=== PATIENT | female | born 1970 | race Caucasian/White ===

== ENCOUNTER 2016-10-03 14:44 | Emergency (ER) | payer OTHER ==
[~2016-10-03] VITALS: Ht 167.6 cm; Wt 65.8 kg
--- NOTE | ~2016-10-03 | CR63 ---
[facility] A Service of [facility] RADIOLOGY TEXT RESULTS PATIENT: MIGUEL JOVEL LOCATION: [facility] : 72 UNIT #: [id number] AGE: [address]: Candy Yu APRN SEX: F ORDER DR: [id number] [facility] [address] [place], [place] [address] [id number] MR#: [id number] Acc #: [id number] NAME: MIGUEL JOVEL. : 1970 SEX: F STUDY DATE/TIME: 10/03/2016 16:20 UNIT: CFIN ROOM: STUDY DESCRIPTION: CR Chest 2 View Attending Physician: Candy Yu A.P.R.N. Referring Physician: Anjum Davis M.D. Ordering Physician: Mehdi De La Rosa M.D. Primary Care Physician[facility] This report is preliminary unless electronic signature is present EXAM Two views chest, 10/03/2016. HISTORY Short of air related to mold exposure, wound infection on buttocks, two days duration. Rheumatoid. TECHNIQUE AP radiograph of the chest is presented. COMPARISON 10/14/2011. FINDINGS Heart and mediastinum normal in size and contour. Lungs somewhat hyperinflated. Correlate with any known underlying chronic airway disease. There is no clear indication of acute infectious or inflammatory disease. There is no pleural effusion or pneumothorax. No suspicious nodule. Stable appearance of densely calcified granuloma, right lung base. There is no acute appearing bony abnormality. Mild levoscoliosis of the thoracic spine. Old healed right anterior 7th rib fracture. Dictated by... Rodney Wong M.D. THIS IS AN ELECTRONICALLY VERIFIED REPORT Rodney Wong M.D. at 10/05/2016 2:47 PM DILSHAD/susan TD: 10/03/2016 23:27 [facility] A Service of [facility] RADIOLOGY TEXT RESULTS PATIENT: MIGUEL JOVEL LOCATION: [facility] : 72 UNIT #: [id number] AGE: [address]: Candy Yu APRN SEX: F ORDER DR: JOB #: [id number] MEDICAL IMAGING REPORT Page 1 of 1 COPY
--- NOTE | ~2016-10-03 | EKG ---
PATIENT: MIGUEL JOVEL UNIT #: [id number] Ventricular Rate: 97 BPM Atrial Rate: 97 BPM P-R Interval: 118 ms QRS Duration: 90 ms Q-T Interval: 376 ms QTC Calculation(Bezet): 477 ms P Amo: 63 degrees Calculated R Amo: 67 degrees Calculated T Amo: 53 degrees Diagnosis Line: Normal sinus rhythm Diagnosis Line: Right atrial enlargement Diagnosis Line: Borderline ECG Diagnosis Line: Diagnosis Line: Confirmed by TAVO MCKEON MD ([id number]) on Diagnosis Line: 10/04/2016 6:39:27 PM INTERPRETING MD: KAREN
[~2016-10-03 14:44] MED LIST: BACTRIM DS TABL1 TA1 PO; KEFLEX500 MG PO; METHADONE PO; [UNRECOGNIZED DRUG - OTHER] TOP
[2016-10-03 16:03] LABS: BASOPHIL# 0.1 X10e3 (0-0.3); BASOPHIL% 1.5 % (0-2.5); EOSINOPHIL# 0.1 X10e3 (0-0.7); EOSINOPHIL% 2.2 % (0.0-7.0); HEMATOCRIT 27.9 % (35.0-45.0); LYMPHOCYTE# 1.5 X10e3 (1.0-3.5); LYMPHOCYTE% 29.7 % (17.0-45.0); MEAN CELL VOLUME 79.5 FL (83-96); MEAN CORPUSCULAR HEMOGLOBIN 25.8 PG (28-34); MEAN CORPUSCULAR HGB CONC 32.5 g/dL (30-36); MEAN PLATELET VOLUME 6.6 FL (6.5-11.5); MONOCYTE# 0.4 X10e3 (0-1.0); MONOCYTE% 7.8 % (3.0-12.0); NEUTROPHIL% 58.8 % (40-75); PLATELET COUNT 315 X10e3 (140-420); RED CELL DISTRIBUTION WIDTH 14.3 % (11.0-15.5); WHITE BLOOD COUNT 5.1 X10e3 (4.0-10.5)
[2016-10-03 16:15] LABS: DIFF IND NO
[2016-10-03 16:20] LABS: URINE SOURCE CLEAN CATCH
[2016-10-03 16:28] LABS: URINE APPEARANCE CLEAR; URINE BILIRUBIN NEG (NEG); URINE BLOOD NEG (NEG); URINE COLOR YELLOW; URINE GLUCOSE NEG (NEG); URINE KETONE NEG (NEG); URINE LEUKOCYTE ESTERASE NEG (NEG); URINE NITRATE NEG (NEG); URINE PH 5.5 (5-8); URINE PROTEIN NEG (NEG); URINE SPECIFIC GRAVITY 1.023 (1.003-1.035)
[2016-10-03 16:29] LABS: POC - CKMB 15.5 ng/mL (0.0-7.9); POC - TROPONIN <0.05 ng/mL (<=0.05)
[2016-10-03 16:46] LABS: AMPHETAMINE POS (NEG); BARBITURATES NEG (NEG); BENZODIAZEPINES NEG (NEG); COCAINE NEG (NEG); MARIJUANA NEG (NEG); OPIATES NEG (NEG); TRICYCLIC ANTIDEPRESSANTS NEG (NEG); U METHADONE POS (NEG)
[2016-10-03 16:51] LABS: CULTURE INDICATED? NO
[2016-10-03 16:52] LABS: BUN/CREATININE RATIO 23.75; CALCIUM SERUM 9.1 mg/dL (8.4-10.2); CREATININE SERUM 0.8 mg/dL (0.6-1.4); GLOM FILT RATE Estimated 89.1 mL/min (>60); POTASSIUM 3.4 mmol/L (3.5-5.1)
[2016-10-05 22:52] LABS: CHLAMYDIA TRACH Not Detected (Not Detected); N GONOR Not Detected (Not Detected)
== END 2016-10-03 17:56 | disposition home or self-care (01) ==
LOC: CED 14:44 → CFTX 14:44 → CED 15:32 → CFTX 17:56
PROVIDERS: Nurse Practitioner
DX: L03.317 Cellulitis of buttock (principal); H60.12 Cellulitis of left external ear; D64.9 Anemia, unspecified; E87.6 Hypokalemia; F15.10 Other stimulant abuse, uncomplicated; F17.210 Nicotine dependence, cigarettes, uncomplicated; M25.551 Pain in right hip; G89.29 Other chronic pain
CPT/HCPCS: 36415; 71020; 80048; 80307; 81003; 82553; 82947; 83880; 84484; 84703; 85025; 87491; 87591; 87808; 87905; 93005; 99285

== ENCOUNTER 2016-11-03 13:10 | Emergency (ER) | payer OTHER ==
[2016-11-03] MEDS ORDERED: TOE FUNGUS MED (13:17)
[2016-11-03] MEDS ORDERED: PROBIOTIC1 EAC4 (13:17)
== END 2016-11-03 14:19 | disposition home or self-care (01) ==
LOC: SED 13:10
DX: K64.8 Other hemorrhoids (principal)
CPT/HCPCS: 99283